=== PATIENT | female | born 1955 | race Caucasian/White ===

== ENCOUNTER → 2018-05-02 | Outpatient (CLI) | payer BC | LOC: MC.RAD 03-24 14:40 | DX: Z12.31 Encounter for screening mammogram for malignant neoplasm of breast (principal) ==

== ENCOUNTER → 2018-05-20 | Outpatient (CLI) | payer BC | LOC: MC.RAD 12:58 | DX: R92.8 Other abnormal and inconclusive findings on diagnostic imaging of breast (principal) ==

== ENCOUNTER 2018-11-28 07:21 | Day surgery (SDC) | payer BC ==
[~2018-11-28] VITALS: Ht 167.6 cm; Wt 107.8 kg
[2018-11-28] VITALS (8 sets, daily range): BP systolic 106–139; BP diastolic 65–100; PULSE 56–94; TEMP 97
[2018-11-28 07:53] LABS: HEMATOCRIT 50.6 % (37.0-47.0); HEMOGLOBIN 16.9 g/dl (12.5-16.0); MEAN CELL VOLUME 88 fl (80.0-100.0); MEAN CORPUSCULAR HEMOGLOBIN 29 pg (27.0-31.0); MEAN CORPUSCULAR HGB CONC 33 g/dl (33.0-37.0); MEAN PLATELET VOLUME 10.7 fl (7.4-10.4); PLATELET COUNT 225 K/mm3 (130-400); RED BLOOD COUNT 5.74 M/mm3 (4.10-5.30); REDCELL DISTRIBUTION WIDTH-CV 13.4 % (11.5-14.5)
[2018-11-28 07:58] LABS: INR 1.4 (0.8-3.0)
[2018-11-28 08:02] LABS: CALCIUM 9.8 mg/dL (8.4-10.2); CREATININE, serum 0.89 mg/dL (0.52-1.25); POTASSIUM 4.1 mmol/L (3.4-5.0)
[2018-11-28] MEDS ORDERED: NORVASC 5MG5 MG/TAB PO (08:21)
[2018-11-28] MEDS ORDERED: ASPIRIN 81M81 MG/TA2 PO (08:21)
[2018-11-28] MEDS ORDERED: ELIQUIS 5MG PO (08:21)
[2018-11-28] MEDS ORDERED: SYNTHROID 0.0.025 MG PO (08:22)
[2018-11-28] MEDS ORDERED: LASIX 20MG TABL20 MG PO (08:22)
[2018-11-28] MEDS ORDERED: PRINZIDE 12.5 M1 TA1 PO (08:23)
[2018-11-28] MEDS ORDERED: LUTEIN20 M1 PO (08:23)
[2018-11-28] MEDS ORDERED: ZOCOR 20MG20 MG PO (08:24)
[2018-11-28] MEDS ORDERED: LOPRESSOR 225 MG/TAB PO (08:24)
[2018-11-28] MEDS ORDERED: PRILOSEC 20MG20 MG PO (08:24)
[2018-11-28] MEDS ORDERED: VITAMIN D 400400 IU PO (08:25)
[2018-11-28 08:53] LABS: POTASSIUM 4.2 mmol/L (3.4-5.0)
[2018-11-28 09:28] LABS: THYROID STIMULATING HORMONE 3.44 uIU/mL (0.465-4.680)
[2018-11-28] MEDS ORDERED: MULTAQ400 MG PO (09:42)
[2018-11-28] MEDS ORDERED: CEPHALEXIN500 M1 PO (11:10)
== END 2018-11-28 12:26 | disposition home or self-care (01) ==
LOC: COL.CAR 07:21
PROVIDERS: Internal Medicine Cardiovascular Disease
DX: I48.0 Paroxysmal atrial fibrillation (principal); J44.9 Chronic obstructive pulmonary disease, unspecified; E78.5 Hyperlipidemia, unspecified; I10 Essential (primary) hypertension; Z79.01 Long term (current) use of anticoagulants; Z79.899 Other long term (current) drug therapy; Z82.49 Family history of ischemic heart disease and other diseases of the circulatory system; Z80.9 Family history of malignant neoplasm, unspecified; E07.9 Disorder of thyroid, unspecified; K21.9 Gastro-esophageal reflux disease without esophagitis
CPT/HCPCS: J2250; J3010; J7030

== ENCOUNTER 2019-01-01 10:08 | Day surgery (SDC) | payer BC ==
[~2019-01-01] VITALS: Ht 167.7 cm; Wt 108.7 kg
[2019-01-01] VITALS (12 sets, daily range): BP systolic 110–164; BP diastolic 58–84; PULSE 45–61; TEMP 97.8
[~2019-01-01 10:08] MED LIST: ASPIRIN 81M81 MG/TA2 PO; CEPHALEXIN500 M1 PO; ELIQUIS 5MG PO; LASIX 20MG TABL20 MG PO; LOPRESSOR 225 MG/TAB PO; LUTEIN20 M1 PO; MULTAQ400 MG PO; NORVASC 5MG5 MG/TAB PO; PRILOSEC 20MG20 MG PO; PRINZIDE 12.5 M1 TA1 PO; SYNTHROID 0.0.025 MG PO; VITAMIN D 400400 IU PO; ZOCOR 20MG20 MG PO
[2019-01-01] MEDS ORDERED: MULTAQ400 MG PO (10:55)
[2019-01-01 10:56] LABS: HEMOGLOBIN 15.7 g/dl (12.5-16.0); MEAN CELL VOLUME 87 fl (80.0-100.0); MEAN CORPUSCULAR HEMOGLOBIN 30 pg (27.0-31.0); MEAN CORPUSCULAR HGB CONC 34 g/dl (33.0-37.0); MEAN PLATELET VOLUME 10.2 fl (7.4-10.4); PLATELET COUNT 179 K/mm3 (130-400); RED BLOOD COUNT 5.32 M/mm3 (4.10-5.30); REDCELL DISTRIBUTION WIDTH-CV 12.8 % (11.5-14.5)
[2019-01-01 11:02] LABS: PROTHROMBIN TIME 11.6 SECONDS (9.7-12.8)
[2019-01-01 11:03] LABS: CALCIUM 10.3 mg/dL (8.4-10.2); CREATININE, serum 0.9 mg/dL (0.52-1.25); POTASSIUM 4.1 mmol/L (3.4-5.0)
--- NOTE | 2019-01-01 11:38 | NUR ---
Pt to procedure,report to Dee Dee Nolan.
--- NOTE | 2019-01-01 11:51 | NUR ---
ALL MEDICATIONS GIVEN VIA VERBAL ORDER WITH READBACK WITH MD. SEE MERGE FOR ALL MEDICATION ADMIN TIMES.
--- NOTE | 2019-01-01 17:25 | NUR ---
Discharge instructions given to pt.pt verbalizesunderstanding.INT removed,catheter tip intact.
--- NOTE | 2019-01-01 17:45 | NUR ---
Pt escortedout via wheelchair by this nurse.
== END 2019-01-01 17:46 | disposition home or self-care (01) ==
LOC: COL.CAR 10:08
PROVIDERS: Internal Medicine Cardiovascular Disease
DX: I25.10 Atherosclerotic heart disease of native coronary artery without angina pectoris (principal); I48.0 Paroxysmal atrial fibrillation; I10 Essential (primary) hypertension; E78.5 Hyperlipidemia, unspecified; Q21.1 Atrial septal defect; I42.9 Cardiomyopathy, unspecified; Z88.2 Allergy status to sulfonamides; Z88.1 Allergy status to other antibiotic agents; Z79.01 Long term (current) use of anticoagulants; Z79.82 Long term (current) use of aspirin; Z82.49 Family history of ischemic heart disease and other diseases of the circulatory system
CPT/HCPCS: C1760; C1894; J1644; J2250; J3010; Q9967

== ENCOUNTER 2020-08-17 14:43 | Inpatient (IN) | payer BC ==
[~2020-08-17] VITALS: Ht 167.6 cm; Wt 108.0 kg
[2020-09-05] MEDS ORDERED: CRESTOR20 MG PO (09:14)
--- NOTE | 2020-09-05 09:15 | NUR ---
Pt arrives to medical unit rm 358, ambulates into rm with steady gait, denies pain or current needs. POC reviewed with pt and home medications reconciled. No further needs reported. Call light in reach.
[2020-09-05 09:48] VITALS: BP 132/87; BP 132/876; PULSE 116; TEMP 97.9
[2020-09-05 10:00] LABS: BASO # 0.1 (0.0-0.2); EOS # 0.1 (0.0-0.7); EOS % 2.4 % (0-4.0); GRAN # 3.4 (1.4-6.5); GRAN % 66.4 % (42.2-75.2); HEMATOCRIT 43.9 % (37.0-47.0); HEMOGLOBIN 14.5 g/dl (12.5-16.0); LYMPH % 20.2 % (20.0-51.0); MEAN CELL VOLUME 90 fl (80.0-100.0); MEAN CORPUSCULAR HEMOGLOBIN 30 pg (27.0-31.0); MEAN CORPUSCULAR HGB CONC 33 g/dl (33.0-37.0); MEAN PLATELET VOLUME 10.8 fl (7.4-10.4); MONO # 0.5 (0.1-0.6); MONO % 9.8 % (1.7-9.3); PLATELET COUNT 220 K/mm3 (130-400); RED BLOOD COUNT 4.86 M/mm3 (4.10-5.30); REDCELL DISTRIBUTION WIDTH-CV 13.4 % (11.5-14.5)
[2020-09-05 10:07] LABS: INR 1.3 (0.8-3.0); PROTHROMBIN TIME 14.3 SECONDS (9.7-12.8)
[2020-09-05 11:36] LABS: ALBUMIN 4.5 gm/dL (3.5-5.0); BILIRUBIN,TOTAL 0.5 mg/dL (0.0-1.0); CALCIUM 10.8 mg/dL (8.4-10.2); CREATININE, serum 0.81 (0.52-1.25); MAGNESIUM 2.3 mg/dL (1.6-2.3); POTASSIUM 4.5 mmol/L (3.4-5.0); TOTAL PROTEIN 7.5 gm/dL (6.4-8.2)
[2020-09-05 12:13] VITALS: BP 140/81; PULSE 82; TEMP 97.7
[2020-09-05 16:00] VITALS: BP 123/86; PULSE 73; TEMP 98.3
--- NOTE | 2020-09-05 18:14 | NUR ---
Pt sitting up by window, denies pain or needs. Uneventful shift. Call light in reach.
--- NOTE | 2020-09-05 19:20 | NUR ---
Report received from Marianela ANSARI. Pt sitting up on bench in room working on laptop. Denies any needs at this time. Will continue to monitor.
[2020-09-05 20:05] VITALS: BP 144/92; PULSE 66; TEMP 98.1
--- NOTE | 2020-09-05 20:49 | NUR ---
Assessment complete. Pt up walking around room upon entering. Heart rhythm irregular, rate normal. In Afib per ekg monitor tech. Denies chest pain or shortness of breath. INT to right hand intact and flushes easily. Denies other needs at this time.
[2020-09-06] VITALS: BP 122/49; PULSE 120; TEMP 91.1
[2020-09-06 04:00] VITALS: BP 135/77; PULSE 93; TEMP 97.6
--- NOTE | 2020-09-06 06:33 | NUR ---
Pt slept for much of night. Currently sitting up by window in room working on laptop. No complaints of pain or other concerns. Remains in Afib with rate fluctuating between 80 to 110 for most of night.
[2020-09-06 07:38] LABS: BASO % 0.9 % (0.0-2.0); EOS # 0.2 (0.0-0.7); EOS % 3.9 % (0-4.0); GRAN # 2.5 (1.4-6.5); GRAN % 55.9 % (42.2-75.2); HEMATOCRIT 44.8 % (37.0-47.0); HEMOGLOBIN 14.9 g/dl (12.5-16.0); LYMPH # 1.3 (1.2-3.4); LYMPH % 28.9 % (20.0-51.0); MEAN CELL VOLUME 90 fl (80.0-100.0); MEAN CORPUSCULAR HEMOGLOBIN 30 pg (27.0-31.0); MEAN CORPUSCULAR HGB CONC 33 g/dl (33.0-37.0); MEAN PLATELET VOLUME 10.6 fl (7.4-10.4); MONO # 0.5 (0.1-0.6); MONO % 10.2 % (1.7-9.3); PLATELET COUNT 227 K/mm3 (130-400); RED BLOOD COUNT 4.97 M/mm3 (4.10-5.30); REDCELL DISTRIBUTION WIDTH-CV 13.6 % (11.5-14.5)
[2020-09-06 07:55] LABS: CALCIUM 10.5 mg/dL (8.4-10.2); CREATININE, serum 0.81 (0.52-1.25); MAGNESIUM 2.2 mg/dL (1.6-2.3); POTASSIUM 4.3 mmol/L (3.4-5.0)
--- NOTE | 2020-09-06 08:10 | NUR ---
Assessment complete. Patient sitting up on bench in room. States she feels fine. IV site is CD&I, flushed well. No cmplaints of pain or discomfort were reported. BLE edema is evident but pt states this is normal for her. Stated she was not sure if she wanted to get the flu shot here or not and requested to think about it for a little bit. No other needs were expressed at this time. Call light is in reach.
[2020-09-06 08:31] VITALS: BP 124/76; PULSE 102; TEMP 98
--- NOTE | 2020-09-06 10:06 | NUR ---
Initial visit; Patient who is a [employer] thanked [employer] for the work she is doing and Ceo and patient shared prayer for eachother their good health and the work they do for God's Kingdom.
--- NOTE | 2020-09-06 10:53 | NUR ---
ARISTIDES met with the patient to discuss discharge plan. The patient lives in [place] with her , Nakul (ph#[phone]). She reports independence with ADLs and does not have any DME. The patient's PCP is Dr. Vonda Sheehan and she receives her medications at [facility] in [place]. She reports occasional difficulties affording her meds. She states that she has a co-pay for her Eliquis and has utilized [facility] for some other prescriptions in the past. The patient does not have a DPOA-HC, but she was interested in obtaining a form for DPOA-HC. ARISTIDES provided. The patient plans to return home with her upon discharge. No additional needs at this time.
[2020-09-06 13:18] VITALS: BP 125/65; PULSE 74; TEMP 97.4
[2020-09-06 16:25] VITALS: BP 128/93; PULSE 90; TEMP 97.8
--- NOTE | 2020-09-06 18:44 | NUR ---
Report received from Joycelyn ANSARI. Pt up in chair watching tv at this time. Water cup refilled. Denies other needs at this time. Call light in reach.
--- NOTE | 2020-09-06 20:02 | NUR ---
Assessment complete. Pt up walking around room. Heart rhythm remains Afib, rate in 70s at this time but still fluctuates greatly per air sampling and monitoring. Denies chest pain, shortness of breath, dizziness, or palpitations. Consent for cardioversion signed and placed on front of pt's chart. Denies other needs at this time.
[2020-09-06 20:13] VITALS: BP 137/68; PULSE 82; TEMP 97.9
[2020-09-07] VITALS: BP 138/74; PULSE 75; TEMP 97.5
[2020-09-07 04:46] VITALS: BP 128/74; PULSE 81; TEMP 97.6
--- NOTE | 2020-09-07 06:15 | NUR ---
Pt had uneventful shift. Slept for majority of night without complaint. At this time is lying awake in bed, denied needs.
[2020-09-07 07:08] VITALS: BP 111/64; PULSE 78; TEMP 97.9
--- NOTE | 2020-09-07 07:56 | NUR ---
Assessment completed, alert/oriented, vital signs stable, denies any chest pain or discomfort, heart irregular/ A.fib on tele but rate is controlled, day#3 of Sotalol and is scheduled for CV this morning, patient has been NPO, sitting up in room on her computer, denies other needs at this time, consent is signed
[2020-09-07 08:23] LABS: CALCIUM 10.3 mg/dL (8.4-10.2); CREATININE, serum 0.7 (0.52-1.25); MAGNESIUM 2.2 mg/dL (1.6-2.3); POTASSIUM 4.5 mmol/L (3.4-5.0)
--- NOTE | 2020-09-07 08:29 | NUR ---
ELAN Zamora notified of patient's increased heart rate.
--- NOTE | 2020-09-07 09:20 | NUR ---
patient is going down for CV at this time
[2020-09-07 09:23] LABS: BASO % 0.7 % (0.0-2.0); EOS # 0.1 (0.0-0.7); EOS % 2.7 % (0-4.0); GRAN # 2.6 (1.4-6.5); HEMATOCRIT 44.9 % (37.0-47.0); HEMOGLOBIN 14.8 g/dl (12.5-16.0); LYMPH # 1.2 (1.2-3.4); LYMPH % 26.4 % (20.0-51.0); MEAN CELL VOLUME 91 fl (80.0-100.0); MEAN CORPUSCULAR HEMOGLOBIN 30 pg (27.0-31.0); MEAN CORPUSCULAR HGB CONC 33 g/dl (33.0-37.0); MEAN PLATELET VOLUME 10.7 fl (7.4-10.4); MONO # 0.4 (0.1-0.6); PLATELET COUNT 216 K/mm3 (130-400); RED BLOOD COUNT 4.93 M/mm3 (4.10-5.30); REDCELL DISTRIBUTION WIDTH-CV 13.4 % (11.5-14.5)
[2020-09-07 10:50] VITALS: BP 128/92; PULSE 87; TEMP 98.2
[2020-09-07] MEDS ORDERED: BETAPACE 80MG80 MG PO (11:18)
[2020-09-07 11:22] VITALS: BP 131/72; PULSE 85; TEMP 98.2
--- NOTE | 2020-09-07 15:17 | NUR ---
Discharge instuctions reveiwed with the patient, instructed to follow up as scheduled for her, discussed medicaitons and to take Sotalol as ordered, instructed to stop Multaq and Metoprolol, script sent to pharmacy for her, IV and TELE removed, patient leaving with her , DELBERT escorted her out the door
== END 2020-09-07 15:18 | disposition home or self-care (01) | DRG 310 ==
LOC: MEDICAL 09-05 08:44
PROVIDERS: ADMIT Internal Medicine Cardiovascular Disease
PROC: 5A2204Z Restoration of Cardiac Rhythm, Single (ICD-10-PCS; principal; 2020-09-07)
DX: I48.91 Unspecified atrial fibrillation (principal); I42.9 Cardiomyopathy, unspecified; I25.10 Atherosclerotic heart disease of native coronary artery without angina pectoris; I10 Essential (primary) hypertension; G47.33 Obstructive sleep apnea (adult) (pediatric); E78.5 Hyperlipidemia, unspecified; Z79.01 Long term (current) use of anticoagulants; Z88.2 Allergy status to sulfonamides
CPT/HCPCS: J2704

== ENCOUNTER → 2021-06-16 | Outpatient (CLI) | payer BC ==
[~2021-06-16] MED LIST changes: +BETAPACE 80MG80 MG PO; +CRESTOR20 MG PO
== END ==
LOC: MC.RAD 07:20
DX: Z12.31 Encounter for screening mammogram for malignant neoplasm of breast (principal)

== ENCOUNTER → 2021-06-23 | Outpatient (CLI) | payer BC | LOC: MC.RAD 06-22 07:45 | DX: N63.20 Unspecified lump in the left breast, unspecified quadrant (principal); R91.1 Solitary pulmonary nodule ==

== ENCOUNTER → 2022-01-12 | Outpatient (CLI) | payer BC | LOC: MC.RAD 09:00 | DX: N63.20 Unspecified lump in the left breast, unspecified quadrant (principal) ==

== ENCOUNTER 2022-10-12 10:12 | Day surgery (SDC) | payer MEDICARE, BC ==
[~2022-10-12] VITALS: Ht 167.7 cm; Wt 112.8 kg
[2022-10-12] MEDS ORDERED: ELOCON0.1% TP (11:16)
[2022-10-12 12:06] LABS: HEMOGLOBIN 13.3 g/dl (12.5-16.0); MEAN CELL VOLUME 89 fl (80.0-100.0); MEAN CORPUSCULAR HEMOGLOBIN 29 pg (27-31); MEAN CORPUSCULAR HGB CONC 32 g/dl (33.0-37.0); MEAN PLATELET VOLUME 10.2 fl (7.4-10.4); PLATELET COUNT 186 K/mm3 (130-400); REDCELL DISTRIBUTION WIDTH-CV 14.1 % (11.5-14.5)
[2022-10-12 12:16] LABS: INR 1.4 (0.8-3.0); PROTHROMBIN TIME 16.6 SECONDS (9.7-12.8)
[2022-10-12 12:19] VITALS: BP 151/104; PULSE 82; TEMP 97.6
[2022-10-12 12:19] LABS: PARTIAL THROMBOPLASTIN TIME 40.2 SECONDS (26.0-37.0)
[2022-10-12 12:26] LABS: CREATININE, serum 0.78 mg/dL (0.57-1.11); MAGNESIUM 2.1 mg/dL (1.6-2.6); POTASSIUM 3.8 mmol/L (3.5-4.5)
[2022-10-12 12:48] LABS: THYROID STIMULATING HORMONE 1.047 uIU/mL (0.350-4.940)
[2022-10-12 14:00] VITALS: BP 132/71; PULSE 72
[2022-10-12 14:15] VITALS: BP 133/80; PULSE 69
[2022-10-12] MEDS ORDERED: BETAPACE 80MG80 MG PO (14:18)
[2022-10-12 14:30] VITALS: BP 146/78; PULSE 65
[2022-10-12 14:45] VITALS: BP 153/88; PULSE 72
[2022-10-12 15:00] VITALS: BP 138/80; PULSE 60
--- NOTE | 2022-10-12 15:11 | NUR ---
DC instructions reviewed with pt. She expresses understanding. She is steady on feet around room. IV site wrapped with coban. Pt has tolerated PO fluids without issue. She has refused food. She is assisted out to friend's car by wheelchair.
== END 2022-10-12 15:11 | disposition home or self-care (01) ==
LOC: COL.CAR 10:12
PROVIDERS: Internal Medicine Cardiovascular Disease
DX: I48.0 Paroxysmal atrial fibrillation (principal); Z79.01 Long term (current) use of anticoagulants; I25.10 Atherosclerotic heart disease of native coronary artery without angina pectoris; I42.9 Cardiomyopathy, unspecified; I10 Essential (primary) hypertension; E78.5 Hyperlipidemia, unspecified; I77.810 Thoracic aortic ectasia
CPT/HCPCS: J2704; J7120

== ENCOUNTER → 2024-04-10 | Outpatient (CLI) | payer MEDICARE ==
[~2024-04-10] MED LIST changes: -CRESTOR20 MG PO; +CRESTOR40 MG PO; +ELOCON0.1% TP; +MOTRIN 600600 MG/TAB PO; +NORCO 325 MG-51 TAB PO; +NORVASC 10MG10 MG PO; -NORVASC 5MG5 MG/TAB PO
== END ==
LOC: MC.RAD 09:00
DX: Z12.31 Encounter for screening mammogram for malignant neoplasm of breast (principal)